=== PATIENT | female | born 1940 | race Caucasian/White ===

== ENCOUNTER 2018-12-17 05:48 | Emergency (ER) | payer OTHER ==
[~2018-12-17] VITALS: Ht 160 cm; Wt 64.4 kg
[2018-12-17] MEDS ORDERED: XARELTO10 MG (05:50)
[2018-12-17] MEDS ORDERED: DIGOX125 MCG (05:50)
[2018-12-17] MEDS ORDERED: LOSARTAN POTASS50 MG (05:51)
[2018-12-17] MEDS ORDERED: SYNTHROID50 MCG (05:51)
== END 2018-12-17 09:50 | disposition home or self-care (01) ==
LOC: ER 05:48
DX: S00.83XA Contusion of other part of head, initial encounter (principal); W18.09XA Striking against other object with subsequent fall, initial encounter; Y93.89 Activity, other specified; Y92.230 Patient room in hospital as the place of occurrence of the external cause; Y99.8 Other external cause status

== ENCOUNTER 2018-12-28 01:49 | Emergency (ER) | payer OTHER ==
[~2018-12-28] VITALS: Ht 160 cm; Wt 64.4 kg
[~2018-12-28 01:49] MED LIST: DIGOX125 MCG; LOSARTAN POTASS50 MG; SYNTHROID50 MCG; XARELTO10 MG
[2018-12-28] MEDS ORDERED: SINGULAIR 5MG5 MG (02:38)
[2018-12-28] MEDS ORDERED: CARDIZEM60 MG (02:38)
[2018-12-28] MEDS ORDERED: METOCLOPRAMIDE10 MG PO (07:24)
== END 2018-12-28 08:14 | disposition home or self-care (01) ==
LOC: ER 01:49
DX: H81.13 Benign paroxysmal vertigo, bilateral (principal); I48.2 Chronic atrial fibrillation